=== PATIENT | female | born 1945 | race Caucasian/White ===

== ENCOUNTER 2019-12-12 12:01 | Inpatient (IN) | payer MEDICARE ==
[2019-12-12 15:13] VITALS: BMI 32.8
[2019-12-12] MEDS: HYDROcodone/Acetaminophen 5/325 mg Tablet PO PRN ×2 (15:15→20:20)
[2019-12-12] MEDS ORDERED: Acetaminophen 325 MG TAB PO PRN (17:17)
[2019-12-12] MEDS: Aspirin 81 mg Enteric Coated Tablet PO SCH (20:20)
[2019-12-13] MEDS: HYDROcodone/Acetaminophen 5/325 mg Tablet PO PRN ×5 (00:35→20:04)
[2019-12-13 05:52] LABS: #Basophils 0.1 thou/uL (0.0-0.2); #Eosinphils 0.3 thou/uL (0.0-0.7); #Monocytes 1.1 thou/uL (0.11-0.59); #Neutrophils 4.3 thou/uL (1.40-6.50); %Eosinophils 2.9 % (0.0-10.0); %Lymphocytes 34.1 % (21.0-51.0); %Monocytes 12.6 % (0.0-10.0); %Neutrophils 49.4 % (42.0-75.0); Hemoglobin 10.6 g/dL (12.0-16.0); Mean Corpuscular HGB CONC 31.5 g/dL (32.0-36.0); Mean Corpuscular Hemoglobin 30.6 pg (27.0-31.0); Mean Corpuscular Volume 97.2 fL (78.0-98.0); Mean Platelet Volume 11.1 fL (7.4-10.4); Platelet Count 180 thou/uL (130-400); RBC Distribution Width 11.9 % (11.5-14.5); Red Blood Cell (RBC) Count 3.45 mill/uL (4.20-5.40); White Blood Cell (WBC) Count 8.7 thou/uL (4.8-10.8)
[2019-12-13 05:59] LABS: ALT (SGPT) 10 U/L (8-55); AST (SGOT) 14 U/L (5-34); Albumin 3.2 g/dL (3.4-4.8); Alkaline Phosphatase 69 U/L (40-110); Anion Gap 13 mmol/L (10-20); BUN (Urea Nitrogen) 15 mg/dL (9.8-20.1); Bilirubin, Total 0.8 mg/dL (0.2-1.2); Calc. Creatinine Clearance 129 mL/min (70-130); Calcium 8.2 mg/dL (7.8-10.44); Carbon Dioxide 24 mmol/L (23-31); Chloride 107 mmol/L (98-107); Cholesterol 133 mg/dl (< 200 Desired); Estimated GFR-MDRD Greater than 90; Globulin 2.3 g/dL (2.4-3.5); Glucose 107 mg/dL (83-110); HDL Cholesterol 44 mg/dL (>60 Neg Risk); LDL Cholesterol, Calculated 70 mg/dL; Potassium 3.7 mmol/L (3.5-5.1); Protein, Total 5.5 g/dL (6.0-8.3); Sodium 140 mmol/L (136-145); Triglycerides 93 mg/dL (Less than 150)
--- NOTE | 2019-12-13 08:00 | HP ---
CHIEF COMPLAINT: Weakness following a left total knee replacement. HISTORY OF PRESENT ILLNESS: The patient is a 74-year-old white female, who has a history of hypertension and severe osteoarthritis of the left knee. The patient lives alone and has been independent of her ADLs and instrumental ADLs. The patient underwent a left total knee replacement at the [facility] in [place], [place] by orthopedic surgeon, Sebastián Garvin on Tuesday12/10/19. Postop, she has done very well. She has been up sitting in chair and walking some and bending up to about 60 degrees at left knee. She has been sent to [facility] for continued therapy. The patient was seen soon after her admission, accompanied by her daughter, Lizzeth. The patient was able to review with me this above history and said right now she is doing fine. Her pain has been well controlled. She is having a little trouble with her bowels moving. PAST HISTORY: Hypertension, overactive bladder with some episodes of incontinence, controlled with Myrbetriq. The patient had a hysterectomy in 1989 for cyst. The patient had a colonoscopy in 2018 with removal of a benign polyp. Left total knee replacement on 12/10/19. PRESENT MEDICINES: 1. Losartan hydrochlorothiazide 50/12.5 one daily. 2. Aspirin 81 mg daily. 3. Myrbetriq 50 mg daily. 4. Multivitamin daily. 5. MiraLAX 17 g in 8 ounces water daily as needed. 6. Docusate sodium 100 mg b.i.d. 7. Tylenol 325 mg two every 6 hours as needed for pain. 8. Hydrocodone acetaminophen 5/325 one to two as needed for pain. ALLERGIES: AMOXICILLIN. REVIEW OF SYSTEMS: GENERAL: The patient said she has not had any recent weight gain or loss. She has had no recent fever. HEAD AND NECK: No complaints. PULMONARY: No shortness of breath. CARDIOVASCULAR: No chest pain. GI: No complaint other than lately her bowels have not moved well since her surgery. : The patient says she has an overactive bladder with episodes of incontinence that she controls with Myrbetriq. NEUROPSYCHIATRIC: No complaint. ADL: The patient has been independent in all of her ADLs prior to her surgery and independent with all her instrumental ADLs. HABITS: Alcohol, none. Tobacco, none. SOCIAL HISTORY: The patient is a . The patient lives by herself but her children assist her if needed. She plans upon discharge going back to her home and her sister will assist her. PHYSICAL EXAMINATION: GENERAL: A very pleasant 74-year-old white female, who is alert and talkative and appears very comfortable. VITAL SIGNS: Show a temperature of 97.7, pulse 85, respirations 18, O2 saturation 100% on room air, blood pressure 149/70. Her weight is 197, height 5 feet 5 inches. HEENT: Head, normocephalic and atraumatic. Eyes, pupils are equal, round, and reactive. Sclerae nonicteric. Ears, TMs are clear. Nose, normal. Mouth and throat, normal. NECK: Carotids are equal and strong. No bruits. Thyroid not enlarged. LUNGS: Clear. HEART: Regular rate, no murmurs. ABDOMEN: Soft with no organomegaly. No areas of tenderness. EXTREMITIES: There is no edema of the lower extremities. Left knee is larger than the right. There is a vertical incision over the anterior knee with an overlying dressing. There is no redness to the knee. The knee has increased heat and is larger compared to the right knee. NEUROLOGIC: The patient alert and oriented x3. She is weak in the left leg from the recent surgery, but otherwise there is no focal weakness. SKIN: No rash. IMPRESSION: 1. Weakness and gait abnormality. a. Following a left total knee replacement on 12/10/2019. 2. Severe osteoarthritis of the left knee. a. Status post left total knee replacement on 12/10/2019 by orthopedic surgeon, Sebastián Garvin. 3. Hypertension. 4. Obesity. 5. Overactive bladder with episodes of incontinence. a. Controlled with Myrbetriq. 6. Constipation. PLAN: The patient has been admitted to [facility] where PT and OT will continue to work with her. She will be wearing SAMANTHA hose. We will continue her routine medication and allow up in chair as tolerated. We will gradually increase activities within her capabilities. Job ID: [id number] [facility]
[2019-12-13] MEDS: Hydrochlorothiazide 25 MG TAB PO SCH (09:09)
[2019-12-13] MEDS: Polyethylene Glycol 3350 17 GM Packet PO SCH (09:09)
[2019-12-13] MEDS: Losartan Potassium 50 MG TAB PO SCH (09:09)
[2019-12-13] MEDS: Aspirin 81 mg Enteric Coated Tablet PO SCH ×2 (09:10→20:04)
[2019-12-13] MEDS: Multivit, Therapeutic 1 TAB PO SCH (09:10)
--- NOTE | 2019-12-13 11:37 | PRG ---
DATE OF SERVICE: 12/13/2019 SUBJECTIVE: The patient said she had a good night. She slept well. She has already been to therapy this morning. She is sitting in a chair now with an ice pack on her left knee and is comfortable. OBJECTIVE: GENERAL: The patient is alert, appears in no distress. She appears very comfortable. VITAL SIGNS: Her temp is 97.7, pulse 77, respirations 16, O2 saturation 95% on room air, blood pressure 117/67. LUNGS: Clear. HEART: Regular rate. EXTREMITIES: Lower extremities have no edema. Left knee larger than the right. Left knee warmer than the right. There is no drainage from the incision. LABORATORY DATA: Shows an H and H of 10.6 and 33.5, white cell count 8700 with 49% segs, 34% lymphocytes, monocytes 12.6, and platelet count 180,000. Sodium 140, potassium 3.7, BUN 15, creatinine 0.54, GFR greater than 90, albumin 3.2, cholesterol 133, triglycerides 93, LDL 70, HDL 44. TSH 1.2. Liver enzymes normal. ASSESSMENT: 1. Weakness and gait abnormality. a. Following left total knee replacement on 12/10/2019. 2. Severe osteoarthritis of the left knee. a. Status post left total knee replacement on 12/10/2019 by orthopedic surgeon, Sebastián Garvin. 3. Hypertension. 4. Obesity. 5. Overactive bladder with episodes of incontinence. a. Controlled on Myrbetriq. 6. Constipation. PLAN: The patient is doing very well. Continue present care. Continue PT and OT. [facility] ID[facility] [id number] [facility]
[2019-12-14] MEDS: HYDROcodone/Acetaminophen 5/325 mg Tablet PO PRN ×6 (00:03→22:02)
[2019-12-14] MEDS: Losartan Potassium 50 MG TAB PO SCH (09:05)
[2019-12-14] MEDS: Hydrochlorothiazide 25 MG TAB PO SCH (09:05)
[2019-12-14] MEDS: Aspirin 81 mg Enteric Coated Tablet PO SCH ×2 (09:05→20:37)
[2019-12-14] MEDS: Multivit, Therapeutic 1 TAB PO SCH (09:05)
[2019-12-14] MEDS: Polyethylene Glycol 3350 17 GM Packet PO SCH (09:07)
--- NOTE | 2019-12-14 11:13 | PRG ---
DATE OF SERVICE: 12/14/2019 SUBJECTIVE: The patient says she is feeling just fine. She walked further this morning with physical therapy with a rolling walker. Her left knee feels good. Her pain is well controlled. She has had no shortness of breath or chest pain. OBJECTIVE: GENERAL: The patient is sitting up in a chair with her left leg propped up. She looks very comfortable and in no distress. VITAL SIGNS: Temperature 98.9, pulse 79, respirations 20, O2 sat 99% on room air, and blood pressure 119/69. LUNGS: Clear. HEART: Regular rate. EXTREMITIES: No edema. Left knee has a dressing over the wound, but there is no surrounding redness. Left knee is larger than the right and also warmer, typical postop changes. ASSESSMENT: 1. Weakness and gait abnormality. a. Following left total knee replacement on 12/10/2019. b. Improving, walking up to 100 feet with a rolling walker and caregiver assist and transferring with minimal assistance as of 12/13. 2. Severe osteoarthritis of the left knee. a. Status post left total knee replacement on 12/10/2019 by orthopedic surgeon, Sebastián Garvin. b. Doing very well as of 12/13. 3. Hypertension. 4. Obesity. 5. Overactive bladder with episodes of incontinence. a. Controlled on Myrbetriq. 6. Constipation. a. Controlled. PLAN: The patient is making excellent progress. We will continue her PT and OT. Job ID: [id number] [facility]
[2019-12-15] MEDS: HYDROcodone/Acetaminophen 5/325 mg Tablet PO PRN ×4 (02:30→19:29)
[2019-12-15] MEDS: Polyethylene Glycol 3350 17 GM Packet PO SCH (08:43)
[2019-12-15] MEDS: Losartan Potassium 50 MG TAB PO SCH (08:43)
[2019-12-15] MEDS: Aspirin 81 mg Enteric Coated Tablet PO SCH ×2 (08:44→21:02)
[2019-12-15] MEDS: Hydrochlorothiazide 25 MG TAB PO SCH (08:44)
[2019-12-15] MEDS: Multivit, Therapeutic 1 TAB PO SCH (08:44)
[2019-12-16] MEDS: HYDROcodone/Acetaminophen 5/325 mg Tablet PO PRN ×5 (01:46→22:00)
[2019-12-16] MEDS: Polyethylene Glycol 3350 17 GM Packet PO SCH (09:56)
[2019-12-16] MEDS: Multivit, Therapeutic 1 TAB PO SCH (09:56)
[2019-12-16] MEDS: Aspirin 81 mg Enteric Coated Tablet PO SCH ×2 (09:56→20:24)
[2019-12-16] MEDS: Hydrochlorothiazide 25 MG TAB PO SCH (09:57)
[2019-12-16] MEDS: Losartan Potassium 50 MG TAB PO SCH (09:57)
--- NOTE | 2019-12-16 18:07 | PRG ---
DATE OF SERVICE: 12/15/2019 SUBJECTIVE: The patient says she is feeling very good. Her pain is well controlled with her knee. She had been ambulating well with Physical Therapy. She has had no shortness of breath or chest pain. OBJECTIVE: GENERAL: The patient is sitting up in a bedside chair with her left leg elevated on stool. She is in no distress. VITAL SIGNS: Show a temperature of 98.9, pulse 86, respirations 18, O2 saturation 98% on room air, blood pressure 146/74. LUNGS: Clear. HEART: Regular rate. EXTREMITIES: Left knee little larger than the right. The incision, dressing is present. There is no drainage outside of the dressing. There is no redness. There is minimal increased warmth in that left knee. ASSESSMENT: 1. Weakness and gait abnormality. a. Following a left total knee replacement on 12/10/2019. b. Improving. Walking further with a rolling walker and caregiver assist and transferring with minimal assistance as of 12/14. 2. Severe osteoarthritis of the left knee. a. Status post left total knee replacement on 12/10/2019 by orthopedic surgeon, Dr. Sebastián Garvin. b. Doing very well as of 12/14. 3. Hypertension, controlled. 4. Obesity. 5. Overactive bladder with episodes of incontinence. a. Controlled on Myrbetriq. 6. Constipation. a. Controlled. PLAN: Continue present care. Continue PT and OT. Job ID: [id number] [facility]
[2019-12-17] MEDS: HYDROcodone/Acetaminophen 5/325 mg Tablet PO PRN ×4 (05:54→21:57)
[2019-12-17] MEDS: Aspirin 81 mg Enteric Coated Tablet PO SCH ×2 (08:44→20:09)
[2019-12-17] MEDS: Polyethylene Glycol 3350 17 GM Packet PO SCH (08:44)
[2019-12-17] MEDS: Losartan Potassium 50 MG TAB PO SCH (08:44)
[2019-12-17] MEDS: Hydrochlorothiazide 25 MG TAB PO SCH (08:44)
[2019-12-17] MEDS: Multivit, Therapeutic 1 TAB PO SCH (08:44)
--- NOTE | 2019-12-17 14:34 | PRG ---
DATE OF SERVICE: 12/17/2019 SUBJECTIVE: The patient says she is doing very well. Her therapy is going well. She is moving her leg more. The patient said she has a dressing that the orthopedic surgeon sent with her to change at 7 days, which will be done today. She is due to see him in followup next week. She is making good progress and thinking that she probably will be able to go home on or Tuesday that would be December 19 or December 20. OBJECTIVE: GENERAL: The patient is alert, looks very comfortable, in no distress. VITAL SIGNS: Her temp is 97.7, pulse 74, respirations 16, O2 saturation 97% on room air, blood pressure 117/69. LUNGS: Clear. HEART: Regular rate. EXTREMITIES: Left knee is a little larger than the right. The incision that has original dressing, there is just some staining under this. There is no surrounding redness. There is no peripheral edema. She can now flex the knee to about 75 degrees on her own. ASSESSMENT: 1. Weakness and gait abnormality. a. Following a left total knee replacement on 12/10/2019. b. Improving. Walking further with a rolling walker and caregiver assist, transferring with minimal assistance, and increased flexion of the left knee as of 12/16. 2. Severe osteoarthritis of left knee. a. Status post left total knee replacement on 12/10/2019 by the orthopedic surgeon, Dr. Sebastián Garvin. b. Doing very well on 12/16. 3. Hypertension, controlled. 4. Obesity. 5. Overactive bladder with episodes of incontinence. a. Controlled on Myrbetriq. 6. Constipation, controlled. PLAN: Dressing will be changed on the wound today. Continue PT, OT. The patient is due to see Dr. Garvin back next week and he will remove the abril. Job ID: [id number] [facility]
[2019-12-18] MEDS: HYDROcodone/Acetaminophen 5/325 mg Tablet PO PRN ×4 (03:40→17:45)
[2019-12-18] MEDS: Aspirin 81 mg Enteric Coated Tablet PO SCH ×2 (08:27→20:09)
[2019-12-18] MEDS: Multivit, Therapeutic 1 TAB PO SCH (08:27)
[2019-12-18] MEDS: Hydrochlorothiazide 25 MG TAB PO SCH (08:28)
[2019-12-18] MEDS: Polyethylene Glycol 3350 17 GM Packet PO SCH (08:28)
[2019-12-18] MEDS: Losartan Potassium 50 MG TAB PO SCH (08:28)
[2019-12-19] MEDS: HYDROcodone/Acetaminophen 5/325 mg Tablet PO PRN ×5 (01:10→19:51)
[2019-12-19] MEDS: Losartan Potassium 50 MG TAB PO SCH (08:29)
[2019-12-19] MEDS: Hydrochlorothiazide 25 MG TAB PO SCH (08:29)
[2019-12-19] MEDS: Aspirin 81 mg Enteric Coated Tablet PO SCH ×2 (08:29→19:51)
[2019-12-19] MEDS: Multivit, Therapeutic 1 TAB PO SCH (08:29)
[2019-12-19] MEDS: Polyethylene Glycol 3350 17 GM Packet PO SCH (08:30)
--- NOTE | 2019-12-19 08:40 | PRG ---
DATE OF SERVICE: 12/18/2019 SUBJECTIVE: The patient says she is doing very well. Her knee is feeling good. She gets a little sore after her therapy. She is doing very good with her physical therapy. She is walking up to 175 feet several times a day with a rolling walker and standby assistance. She is able to transfer with standby assistance. OBJECTIVE: GENERAL: The patient is sitting up in a chair with her left leg propped up. The patient is alert and talkative, appears comfortable. VITAL SIGNS: Her temperature is 98.6, pulse 81, respirations 16, O2 saturation 97% on room air, blood pressure 118/68. LUNGS: Clear. HEART: Regular rate. EXTREMITIES: Left knee dressing was changed yesterday and wound was reported as very clean with abril present. Left knee is a little larger than the right. There is slight increased warmth compared to the right. There is no edema in the lower leg. ASSESSMENT: 1. Weakness and gait abnormality. a. Following a left total knee replacement on 12/10/2019. b. Improving. Walking up to 175 feet several times a day with a rolling walker. Transferring with standby assistance as of 12/17. 2. Severe osteoarthritis of the left knee. a. Status post left total knee replacement on 12/10/2019 by orthopedic surgeon, Sebastián Garvin. b. Doing very well as of 12/17. 3. Hypertension, controlled. 4. Obesity. 5. Overactive bladder with episodes of incontinence. a. Controlled on Myrbetriq. 6. Constipation, controlled. PLAN: Doing very well. Continue PT and OT. The patient said that when she goes home, she will have a sister staying with her and she wants to continue physical therapy as an outpatient here at [facility], tentatively looking for her to be discharged on Tuesday, 12/20. The patient will see her surgeon, Sebastián Garvin, in followup on 12/25/2019. [facility] [id number] [facility]
[2019-12-20] MEDS: HYDROcodone/Acetaminophen 5/325 mg Tablet PO PRN ×5 (00:52→21:10)
[2019-12-20] MEDS: Hydrochlorothiazide 25 MG TAB PO SCH (08:28)
[2019-12-20] MEDS: Aspirin 81 mg Enteric Coated Tablet PO SCH ×2 (08:28→21:10)
[2019-12-20] MEDS: Multivit, Therapeutic 1 TAB PO SCH (08:29)
[2019-12-20] MEDS: Losartan Potassium 50 MG TAB PO SCH (08:29)
[2019-12-20] MEDS: Polyethylene Glycol 3350 17 GM Packet PO SCH (08:29)
[2019-12-21] MEDS: HYDROcodone/Acetaminophen 5/325 mg Tablet PO PRN ×3 (01:05→09:09)
[2019-12-21] MEDS: Aspirin 81 mg Enteric Coated Tablet PO SCH (08:33)
[2019-12-21] MEDS: Hydrochlorothiazide 25 MG TAB PO SCH (08:33)
[2019-12-21] MEDS: Multivit, Therapeutic 1 TAB PO SCH (08:34)
[2019-12-21] MEDS: Losartan Potassium 50 MG TAB PO SCH (08:34)
[2019-12-21] MEDS: Polyethylene Glycol 3350 17 GM Packet PO SCH (08:34)
[2019-12-21 08:55] VITALS: BP 145/76; TEMP 98.4
--- NOTE | 2019-12-21 14:39 | DIS ---
DATE OF ADMISSION: 12/12/2019 DATE OF DISCHARGE: 12/21/2019 FINAL DIAGNOSES: 1. Weakness and gait abnormality. a. Following a left total knee replacement on 12/10/2019. b. Improving, walking up to 150 feet several times a day with a rolling walker, and transferring independently as of 12/19. 2. Severe osteoarthritis of the left knee. a. Status post left total knee replacement on 12/10/2019 by Orthopedic Surgeon, Dr. Sebastián Garvin. b. Doing very well with flexion of the knee at 86% as of 12/19. 3. Hypertension, controlled. 4. Obesity. 5. Overactive bladder with episodes of incontinence. a. Controlled on Myrbetriq. 6. Constipation, controlled. SUMMARY: The patient is a 74-year-old white female, who has a history of hypertension, overactive bladder, controlled on Myrbetriq, who has severe osteoarthritis of the left knee. The patient lives independent and is independent with all her ADLs and instrumental ADLs. The patient underwent a left total knee replacement for the severe arthritis of the left knee on 12/10/2019 by orthopedic surgeon, Dr. Sebastián Garvin. Postop, she did very well. She was transferred to [facility] for purpose of physical therapy on 12/11. The patient did very well while hospitalized. She made excellent progress with physical therapy. By the time of her discharge, she was walking up to 150 feet several times a day and some days even a little further using a rolling walker. She was transferring independently. She was flexing the knee to 86%. Her incision was healing well. Still has abril present. She is due to see Dr. Garvin on for re-evaluation and removal of abril. The patient's blood pressure was well controlled. She wears SAMANTHA hose to help control any peripheral edema. By 12/19, she was doing fine. Arrangements had been made. Her family will be coming in to stay with her to help on her transition to home. It is planned on her being discharged in the morning of 12/20. She will continue physical therapy in the outpatient department at [facility] at [place]. She is due to see Dr. Garvin, Orthopedic Surgeon in followup on 12/24. DISPOSITION: DIET: Regular diet. No added salt. ACTIVITIES: Ambulate with the use of a walker. MEDICATIONS: Acetaminophen 325 mg two every 4 hours as needed, aspirin 81 mg b.i.d., losartan/HCT 50/12.5 one daily, Myrbetriq 50 mg daily, multivitamin daily, MiraLAX 17 g in 8 ounces of water daily, hydrocodone 5/325 one every 6 hours as needed for pain, #40 tablets given for 10 days. FOLLOWUP: The patient is to see her Orthopedic Surgeon, Sebastián Garvin on 12/24. The patient should follow up with her primary care physician, Dr. Alfred Mcmillan within 2 weeks. CODE STATUS: Full code. Job ID: [id number] [facility]
== END 2019-12-21 13:25 | disposition home or self-care (01) | DRG 561 ==
LOC: MADMS 14:32
PROVIDERS: ADMIT Family Medicine; ATTEND Family Medicine
DX: Z47.1 Aftercare following joint replacement surgery (principal); R26.9 Unspecified abnormalities of gait and mobility; I10 Essential (primary) hypertension; E66.9 Obesity, unspecified; N32.81 Overactive bladder; K59.00 Constipation, unspecified; R32 Unspecified urinary incontinence; Z88.1 Allergy status to other antibiotic agents; Z68.32 Body mass index [BMI] 32.0-32.9, adult
CPT/HCPCS: 36415; 80053; 80061; 84443; 85025

== ENCOUNTER 2024-03-05 18:26 | Emergency (ER) | payer MEDICARE ==
[2024-03-05] MEDS ORDERED: Fluorescein Opthalmic Strip ONE (18:45)
[2024-03-05] MEDS ORDERED: Tetracaine 0.5% PF 4 ML BOT ONE (18:45)
[2024-03-05] MEDS ORDERED: Erythromycin Base 0.5% Ophth Oint 3.5 gm Tube ONE (19:05)
== END 2024-03-05 19:18 | disposition home or self-care (01) ==
LOC: MADERS 18:26
DX: S05.01XA Injury of conjunctiva and corneal abrasion without foreign body, right eye, initial encounter (principal); I10 Essential (primary) hypertension; W20.8XXA Other cause of strike by thrown, projected or falling object, initial encounter
CPT/HCPCS: 99283